=== PATIENT | female | born 2000 | race African-American/Black ===

== ENCOUNTER 2024-01-23 16:48 | Emergency (ER) | payer OTHER ==
[~2024-01-23] VITALS: Ht 160 cm; Wt 53.6 kg
[2024-01-23 17:14] VITALS: BP 118/55; PULSE 83; RESP 19; TEMP 97.7; O2SAT 100
[2024-01-23 18:15] LABS: BASOPHILS # (AUTO) 0.1 K/uL (0.00-0.22); BASOPHILS % (AUTO) 0.7 % (0.0-2.0); EOSINOPHILS % (AUTO) 0.2 % (0.0-4.0); HEMATOCRIT 38.8 % (36-48); HEMOGLOBIN 13.2 g/dL (12.0-16.0); LYMPHOCYTES # (AUTO) 1.5 K/uL (2.5-16.5); LYMPHOCYTES % (AUTO) 16.7 % (20.5-51.1); MEAN CORPUSCULAR HEMOGLOBIN 28 pg (27-31); MEAN CORPUSCULAR HGB CONC 34 g/dL (33-37); MONOCYTES # (AUTO) 0.6 K/uL (0.8-1.0); MONOCYTES % (AUTO) 6.1 % (1.7-9.3); NEUTROPHILS # (AUTO) 7.1 K/uL (1.8-7.7); NEUTROPHILS % (AUTO) 76.3 % (42.2-75.2); PLATELET COUNT (AUTO) 348 K/uL (140-450); RED BLOOD CELL COUNT(AUTO) 4.74 MIL/uL (4.20-5.40); WHITE BLOOD COUNT (AUTO) 9.3 K/uL (4.8-10.8)
[2024-01-23 18:16] LABS: APPEARANCE,URINE CLEAR (CLEAR); BILIRUBIN,URINE NEGATIVE (NEGATIVE); BLOOD, URINE 1+ (NEGATIVE); COLOR,URINE YELLOW (YELLOW); LEUKOCYTE ESTERASE ,URINE NEGATIVE (NEGATIVE); NITRITE, URINE NEGATIVE (NEGATIVE); PH,URINE 6.5 (5.0-9.0); PROTEIN,URINE NEGATIVE (NEGATIVE); UGLUCOSE NEGATIVE (NEGATIVE); UROBILINOGEN,URINE 0.2 EU/dL (0.2 - 1)
[2024-01-23 18:28] LABS: BACTERIA,URINE FEW /HPF (None Seen); SQUAMOUS EPITHELIAL CELL,UR 4-10 (MOD) /LPF (0-3 (FEW)); WBC,URINE 0-5 /HPF (0-5)
[2024-01-23 18:30] LABS: CALCIUM 9.5 mg/dL (8.5-10.1); CARBON DIOXIDE 27.1 mmol/L (21-32); CREATININE 0.6 mg/dL (0.6-1.3); POTASSIUM 4.1 mmol/L (3.5-5.1)
[2024-01-23 18:37] LABS: ALBUMIN 3.6 g/dL (3.4-5.0); BILIRUBIN,DIRECT 0.1 mg/dL (0.0-0.3); TOTAL BILIRUBIN 0.2 mg/dL (0.0-1.0); TOTAL PROTEIN, SERUM 7.3 g/dL (6.4-8.2)
[2024-01-23] MEDS ORDERED: CEPH-588 PO (21:19)
[2024-01-23 21:30] VITALS: BP 102/58; PULSE 91; RESP 16; TEMP 97.7; O2SAT 97
== END 2024-01-23 21:30 | disposition home or self-care (01) ==
LOC: MED 16:48
DX: O26.811 Pregnancy related exhaustion and fatigue, first trimester (principal); R82.71 Bacteriuria; R55 Syncope and collapse; Z3A.01 Less than 8 weeks gestation of pregnancy; Z79.2 Long term (current) use of antibiotics
CPT/HCPCS: 36415; 76830; 80048; 80076; 81001; 81025; 84702; 85025; 86900; 86901; 93005; 93976; 99285; Q0092